=== PATIENT | male | born 1930 | race Caucasian/White ===

== ENCOUNTER → 2016-04-27 | Outpatient (CLI) | payer MEDICARE, OTHER ==
--- NOTE | 2016-04-27 11:40 | USB ---
Reason for exam: clinical finding. 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 These results were verbally communicated with the patient and result sheet given to the patient on 04/27/16. ASSESSMENT: Incomplete: need additional imaging evaluation, BI-RAD 0 RECOMMENDATION: Follow-up diagnostic mammogram of both breasts.
--- NOTE | 2016-04-27 11:42 | MM ---
Reason for exam: additional evaluation requested from abnormal screening. MG 3D Diag Mammo W/Cad SCOTT Bilateral CC and MLO view(s) were taken. Finding: There is an equal density (isodense) mass in the subareolar position of the left breast consistent with gynecomastia. These results were verbally communicated with the patient and result sheet given to the patient on 04/27/16. ASSESSMENT: Probably benign, BI-RAD 3 RECOMMENDATION: Ultrasound of the left breast in 6 months.
== END | disposition home or self-care (01) ==
LOC: RADUSWWP 09:25
PROVIDERS: ATTEND Family Medicine
DX: N63 Unspecified lump in breast (principal)
CPT/HCPCS: 76641; G0204; G0279

== ENCOUNTER 2016-08-26 10:51 | Inpatient (IN) | payer MEDICARE, OTHER ==
--- NOTE | 2016-08-26 12:02 | ED ---
General Adult HPI - General Chief complaint: Syncope Stated complaint: Near Syncope Time Seen by Provider: 08/26/16 11:00 Source: patient, RN notes reviewed Mode of arrival: EMS Limitations: no limitations - History of Present Illness Initial comments: This is a 86-year-old male who presents emergency Department with a past medical history significant for an NM many years ago. Patient also had a TIA in the past. Patient states he used to smoke but he has quit 4 years. Patient comes in today because while at home he was sitting and he had a sensation of lightheadedness and he began to feel as though he was given a syncopal episode. A nurse was with him at the time and the nurse stated that it looked like he was given a passout he was no longer responding to her verbal questions. She stated that he was like this for a few minutes and then slowly came back around. Patient came in via EMS he was alert and oriented 3 for that whole duration. Patient denies any headache patient denies numbness weakness. Patient denies chest pain or palpitations per patient denies any difficulty breathing or shortness of breath. Patient states his heart rate is usually around 60 currently as I speak to at 45. Patient denies any changes in medication - Related Data Home Medications Medication Instructions Recorded Confirmed Aspirin 81 mg PO HS 03/03/14 08/26/16 Nitroglycerin Sl Tabs [Nitrostat] 0.4 mg PO DIRECTED 03/03/14 08/26/16 Atenolol [Tenormin] 50 mg PO DAILY 08/26/16 08/26/16 Pravastatin Sodium [Pravachol] 10 mg PO DAILY 08/26/16 08/26/16 Allergies Allergy/AdvReac Type Severity Reaction Status Date / Time doxycycline Allergy Swelling Verified 08/26/16 11:22 Review of Systems ROS Statement: Those systems with pertinent positive or pertinent negative responses have been documented in the HPI. ROS Other: All systems not noted in ROS Statement are negative. Past Medical History Past Medical History: Coronary Artery Disease (CAD), Hyperlipidemia, Myocardial Infarction ([place]) History of Any Multi-Drug Resistant Organisms: None Reported Past Surgical History: Heart Catheterization Past Psychological History: No Psychological Hx Reported Smoking Status: Former smoker Past Alcohol Use History: Occasional Past Drug Use History: None Reported General Exam - General Exam Comments Initial Comments: GENERAL: Patient is well-developed and well-nourished. Patient is nontoxic and well- hydrated and is in no acute distress. ENT: Neck is soft and supple. No significant lymphadenopathy is noted. Oropharynx is clear. Moist mucous membranes. Neck has full range of motion without eliciting any pain. EYES: The sclera were anicteric and conjunctiva were pink and moist. Extraocular movements were intact and pupils were equal round and reactive to light. Eyelids were unremarkable. PULMONARY: Unlabored respirations. Good breath sounds bilaterally. No audible rales rhonchi or wheezing was noted. CARDIOVASCULAR: Patient's heart rate is approximate 45 bpm ABDOMEN: Soft and nontender with normal bowel sounds. No palpable organomegaly was noted. There is no palpable pulsatile mass. SKIN: Skin is clear with no lesions or rashes and otherwise unremarkable. NEUROLOGIC: Patient is alert and oriented x3. Cranial nerves II through XII are grossly intact. Motor and sensory are also intact. Normal speech, volume and content. Symmetrical smile. MUSCULOSKELETAL: Normal extremities with adequate strength and full range of motion. No lower extremity swelling or edema. No calf tenderness. LYMPHATICS: No significant lymphadenopathy is noted PSYCHIATRIC: Normal psychiatric evaluation. Normal interpersonal interactions appears functionally intact in deals appropriately with others. No signs of depression. No signs of anxiety. Limitations: no limitations Course Vital Signs 08/26/16 08/26/16 08/26/16 11:16 11:36 12:19 Temperature 96.9 F L 98.3 F Pulse Rate 44 L 47 L 45 L Pulse Rate [ 47 L Tube Heater ] Pulse Rate [ Sitting] Pulse Rate [ Standing] Pulse Rate [ Supine] Respiratory 18 16 18 Rate Blood Pressure 124/59 124/70 Blood Pressure [Sitting] Blood Pressure [Standing] Blood Pressure [Supine] O2 Sat by Pulse 97 97 Oximetry 08/26/16 08/26/16 13:00 14:44 Temperature 98 F Pulse Rate 48 L Pulse Rate [ Tube Heater ] Pulse Rate [ 45 L Sitting] Pulse Rate [ 50 L Standing] Pulse Rate [ 46 L Supine] Respiratory 18 18 Rate Blood Pressure 108/53 Blood Pressure 120/58 [Sitting] Blood Pressure 112/58 [Standing] Blood Pressure 119/58 [Supine] O2 Sat by Pulse 94 L Oximetry Medical Decision Making - Medical Decision Making EKG shows sinus bradycardia at 46 bpm OR interval 254 QRS is 86 QT interval 45 QTC is 441 per patient's EKG shows no ST segment elevation or depression or T- wave abdomen is noted. Patient's chest x-ray shows no acute abnormality. Patient's heart rate stayed at about 45 throughout the duration of his stay in emergency department. I spoke with Dr. Galdamez he wanted the patient admitted in consultation cardiology so I did that. I wrote admitting orders. - Lab Data Result diagrams: 08/26/16 11:14 08/26/16 11:14 Lab Results 08/26/16 08/26/16 08/26/16 Range/Units 11:14 11:14 11:14 WBC 4.9 (3.8-10.6) k/uL RBC 4.40 (4.30-5.90) m/uL Hgb 14.1 (13.0-17.5) gm/dL Hct 41.3 (39.0-53.0) % MCV 93.9 (80.0-100.0) fL MCH 32.1 (25.0-35.0) pg MCHC 34.2 (31.0-37.0) g/dL RDW 12.2 (11.5-15.5) % Plt Count 140 L (150-450) k/uL Neutrophils % 64 % Lymphocytes % 21 % Monocytes % 7 % Eosinophils % 2 % Basophils % 2 % Neutrophils # 3.1 (1.3-7.7) k/uL Lymphocytes # 1.0 (1.0-4.8) k/uL Monocytes # 0.3 (0-1.0) k/uL Eosinophils # 0.1 (0-0.7) k/uL Basophils # 0.1 (0-0.2) k/uL PT (9.0-12.0) sec INR (<1.1) APTT (22.0-30.0) sec Sodium 141 (137-145) mmol/L Potassium 4.9 (3.5-5.1) mmol/L Chloride 107 (98-107) mmol/L Carbon Dioxide 26 (22-30) mmol/L Anion Gap 8 mmol/L BUN 19 (9-20) mg/dL Creatinine 1.02 (0.66-1.25) mg/dL Est GFR (MDRD) Af Amer >60 (>60 ml/min/1.73 sqM) Est GFR (MDRD) Non-Af >60 (>60 ml/min/1.73 sqM) Glucose 102 H (74-99) mg/dL Calcium 9.1 (8.4-10.2) mg/dL Magnesium 2.0 (1.6-2.3) mg/dL Total Bilirubin 1.3 (0.2-1.3) mg/dL AST 29 (17-59) U/L ALT 29 (21-72) U/L Alkaline Phosphatase 54 (38-126) U/L Total Creatine Kinase 99 (55-170) U/L CK-MB (CK-2) 1.5 (0.0-2.4) ng/mL CK-MB (CK-2) Rel Index 1.5 Troponin I <0.012 (0.000-0.034) ng/mL NT-Pro-B Natriuret Pep pg/mL Total Protein 7.0 (6.3-8.2) g/dL Albumin 4.0 (3.5-5.0) g/dL 08/26/16 08/26/16 Range/Units 11:14 11:14 WBC (3.8-10.6) k/uL RBC (4.30-5.90) m/uL Hgb (13.0-17.5) gm/dL Hct (39.0-53.0) % MCV (80.0-100.0) fL MCH (25.0-35.0) pg MCHC (31.0-37.0) g/dL RDW (11.5-15.5) % Plt Count (150-450) k/uL Neutrophils % % Lymphocytes % % Monocytes % % Eosinophils % % Basophils % % Neutrophils # (1.3-7.7) k/uL Lymphocytes # (1.0-4.8) k/uL Monocytes # (0-1.0) k/uL Eosinophils # (0-0.7) k/uL Basophils # (0-0.2) k/uL PT 10.8 (9.0-12.0) sec INR 1.1 (<1.1) APTT 22.1 (22.0-30.0) sec Sodium (137-145) mmol/L Potassium (3.5-5.1) mmol/L Chloride (98-107) mmol/L Carbon Dioxide (22-30) mmol/L Anion Gap mmol/L BUN (9-20) mg/dL Creatinine (0.66-1.25) mg/dL Est GFR (MDRD) Af Amer (>60 ml/min/1.73 sqM) Est GFR (MDRD) Non-Af (>60 ml/min/1.73 sqM) Glucose (74-99) mg/dL Calcium (8.4-10.2) mg/dL Magnesium (1.6-2.3) mg/dL Total Bilirubin (0.2-1.3) mg/dL AST (17-59) U/L ALT (21-72) U/L Alkaline Phosphatase (38-126) U/L Total Creatine Kinase (55-170) U/L CK-MB (CK-2) (0.0-2.4) ng/mL CK-MB (CK-2) Rel Index Troponin I (0.000-0.034) ng/mL NT-Pro-B Natriuret Pep 396 pg/mL Total Protein (6.3-8.2) g/dL Albumin (3.5-5.0) g/dL Disposition Clinical Impression: Bradycardia, Near syncope Disposition: ADMITTED IP TO THIS [facility] Time of Disposition: 13:16
[2016-08-26 12:15] LABS: Basophils # (A) 0.1 k/uL (0-0.2); Basophils % (A) 2 %; CH 31.8; Eosinophils # (A) 0.1 k/uL (0-0.7); Eosinophils % (A) 2 %; HCT 41.3 % (39.0-53.0); HDW 2.25; HGB 14.1 gm/dL (13.0-17.5); Luc # (Auto) 0.21; Luc % (Auto) 4; Lymphocytes % (A) 21 %; MCH 32.1 pg (25.0-35.0); MCHC 34.2 g/dL (31.0-37.0); MCV 93.9 fL (80.0-100.0); Mean Platelet Volume 10.2; Monocytes # (A) 0.3 k/uL (0-1.0); Monocytes % (A) 7 %; Neutrophils # (A) 3.1 k/uL (1.3-7.7); Neutrophils % (A) 64 %; RDW 12.2 % (11.5-15.5); WBC 4.9 k/uL (3.8-10.6); WBC (Perox) 4.43
--- NOTE | 2016-08-26 12:19 | XR ---
EXAMINATION TYPE: XR chest 2V DATE OF EXAM: 08/26/2016 12:13 PM COMPARISON: 12/21/2012. HISTORY: Chest pain. TECHNIQUE: Frontal and lateral views of the chest are obtained. FINDINGS: Deep sulcus on the right is unchanged from the prior exam of 12/21/2012. There is no focal ai r space opacity, pleural effusion, or pneumothorax seen. The cardiac silhouette size is within fausto l limits. The osseous structures are intact. Degenerative changes are appreciated of the thoracic s pine. IMPRESSION: No acute cardiopulmonary process.
[2016-08-26 12:25] LABS: ALT 29 U/L (21-72); AST 29 U/L (17-59); Alkaline Phosphatase 54 U/L (38-126); Anion Gap 8 mmol/L; Blood Urea Nitrogen 19 mg/dL (9-20); Calcium 9.1 mg/dL (8.4-10.2); Carbon Dioxide 26 mmol/L (22-30); Chloride 107 mmol/L (98-107); Glucose 102 mg/dL (74-99); Non-African American GFR(MDRD) >60 (>60 ml/min/1.73 sqM); Potassium 4.9 mmol/L (3.5-5.1); Sodium 141 mmol/L (137-145); Total Bilirubin 1.3 mg/dL (0.2-1.3)
[2016-08-26 12:26] LABS: INR 1.1 (<1.1); Partial Thromboplastin Time 22.1 sec (22.0-30.0); Prothrombin Time 10.8 sec (9.0-12.0)
[2016-08-26 12:35] LABS: Creatine Kinase 99 U/L (55-170)
[2016-08-26 12:48] LABS: Creatine Kinase MB 1.5 ng/mL (0.0-2.4); Troponin I <0.012 ng/mL (0.000-0.034)
--- NOTE | 2016-08-26 16:12 | P.CRDCN ---
History of Present Illness Consult date: 08/26/16 Chief complaint: Dizziness and lightheadedness History of present illness: This is a pleasant 86-year-old gentleman who sees Dr. Waterman in the office as an outpatient with a past medical history significant for CAD with a known chronic total occlusion of the right coronary artery according to him, hypertension, and dyslipidemia, presented to the emergency room complaining of dizziness and lightheadedness. The patient was in his usual state of health until barely this morning when he was talking to his son-in-law at home and suddenly he felt dizzy and lightheaded and almost passing out. He did not have any syncope. No chest pain or discomfort. He was found to be bradycardic with a heart rate in the 40s. He was on atenolol for long time. The EKG showed sinus bradycardia without any significant changes. The atenolol was held. I will start the patient on Norvasc to trigger sinus tachycardia. We'll continue monitor the heart rate. Will obtain an echocardiogram was Doppler. Acute coronary syndrome to be ruled out. Past Medical History Past Medical History: Coronary Artery Disease (CAD), Hyperlipidemia, Myocardial Infarction ([place]) History of Any Multi-Drug Resistant Organisms: None Reported Past Surgical History: Heart Catheterization Past Psychological History: No Psychological Hx Reported Smoking Status: Former smoker Past Alcohol Use History: Occasional Past Drug Use History: None Reported Medications and Allergies Home Medications Medication Instructions Recorded Confirmed Type Aspirin 81 mg PO HS 03/03/14 08/26/16 History Nitroglycerin Sl Tabs [Nitrostat] 0.4 mg PO DIRECTED 03/03/14 08/26/16 History Atenolol [Tenormin] 50 mg PO DAILY 08/26/16 08/26/16 History Pravastatin Sodium [Pravachol] 10 mg PO DAILY 08/26/16 08/26/16 History Allergies Allergy/AdvReac Type Severity Reaction Status Date / Time doxycycline Allergy Swelling Verified 08/26/16 11:22 Physical Exam Vitals: Vital Signs Temp Pulse Resp BP Pulse Ox 08/26/16 15:47 97.1 F L 44 L 16 117/59 100 08/26/16 14:44 98 F 48 L 18 108/53 94 L - Constitutional General appearance: no acute distress - Respiratory Respiratory: bilateral: CTA - Cardiovascular Rhythm: regular Heart sounds: normal: S1, S2 Results 08/26/16 11:14 08/26/16 11:14 Assessment and Plan Plan: Assessment Symptomatic bradycardia CAD Hypertension Plan Continue holding the atenolol Start the patient on Norvasc Obtain an echocardiogram was Doppler Rule out acute coronary event
--- NOTE | 2016-08-26 16:40 | US ---
EXAMINATION TYPE: US carotid duplex BILAT DATE OF EXAM: 08/26/2016 1:43 PM COMPARISON: NONE CLINICAL HISTORY: Stenosis. possible TIA, patient stated he felt dizzy and thought he was going to pa ss out. EXAM MEASUREMENTS: RIGHT: Peak Systolic Velocity (PSV) cm/sec ----- Right CCA: 91.8 ----- Right ICA: 89.2 ----- Right ECA: 124.0 ICA/CCA ratio: 1.0 RIGHT: End Diastole cm/sec ----- Right CCA: 19.3 ----- Right ICA: 16.7 ----- Right ECA: 5.7 LEFT: Peak Systolic Velocity (PSV) cm/sec ----- Left CCA: 97.8 ----- Left ICA: 82.4 ----- Left ECA: 109.9 ICA/CCA ratio: 0.8 LEFT: End Diastole cm/sec ----- Left CCA: 18.8 ----- Left ICA: 31.8 ----- Left ECA: 7.6 VERTEBRALS (direction of flow): Right Vertebral: Antegrade Left Vertebral: Antegrade No significant stenosis seen, intimal thickening noted throughout. Plaque noted at bulbs bilaterally. Grayscale, color Doppler, spectral Doppler imaging performed of the carotid arteries IMPRESSION: No hemodynamic significant stenosis of the proximal internal carotid arteries bilaterally by Doppler criteria, an indirect measurement of carotid stenosis
[2016-08-26 16:47] VITALS: BMI 25.5
[2016-08-26] MEDS ORDERED: TAMSULOSIN 0.4 MG CAP.ER.24H PO SCH (22:15)
[2016-08-27] MEDS: amLODIPine 5 MG TAB PO SCH (07:41)
[2016-08-27 08:29] LABS: Cholesterol 153 mg/dL (<200); HDL Cholesterol 51 mg/dL (40-60); Triglycerides 92 mg/dL (<150)
[2016-08-27] MEDS ORDERED: Potassium Replacement Protocol 1 EACH MISC MISCELLANE PRN (10:42)
[2016-08-27] MEDS ORDERED: ONDANSETRON 4 MG/2 ML VIAL IVP PRN (10:42)
[2016-08-27] MEDS ORDERED: ACETAMINOPHEN TAB 325 MG TAB PO PRN (10:42)
[2016-08-27] MEDS ORDERED: Magnesium Replacement Protocol 1 EACH MISC MISCELLANE PRN (10:42)
--- NOTE | 2016-08-27 12:59 | P.HPIM ---
History of Present Illness H&P Date: 08/27/16 Chief Complaint: Dizziness and lightheadedness This is a 86-year-old gentleman with past medical history noted below significant for underlying coronary artery disease who presented to the hospital with worsening dizziness and lightheadedness. Patient said that his symptoms started a few days ago and is being getting progressively worse. He feels that he is in almost have a syncope but never fainted. He denies any chest pain or shortness of breath. He was concerned and decided to come to the emergency room for further evaluation of his dizziness. Patient denies any headache or vision change. In the emergency room, patient was found to be bradycardic with a heart rate in the low 40s. This was attributed to him eating on a beta lucita at home. Atenolol was discontinued. Heart rate improved significantly. Patient said that his dizziness is almost resolved. He was up with a physical therapist this morning and walked around the hallway with no difficulty. Review of Systems Review of system: 14 points review of systems were obtained and were negative except to what were mentioned in the HPI. General: The patient is awake and alert, in no distress, and does not appear acutely ill. Eye: extra-ocular movements are intact; there is normal conjunctiva bilaterally. . Neck: The neck is supple, there is no tenderness or JVD. Cardiovascular: Normal S1-S2, no S3-S4, no murmurs. Respiratory: Lungs clear to auscultation bilaterally with no wheezes rhonchi or rales. Gastrointestinal: Abdomen is soft, nontender, nondistended, with no organomegaly. . Musculoskeletal: Normal ROM, no tenderness, There is no pedal edema. Neurological: There are no obvious motor or sensory deficits. Speech is normal. Skin: Skin is warm and dry and no rashes or lesions are noted. Past Medical History Past Medical History: Coronary Artery Disease (CAD), Hyperlipidemia, Myocardial Infarction ([place]) Last Myocardial Infarction Date:: 1986 History of Any Multi-Drug Resistant Organisms: None Reported Past Surgical History: Heart Catheterization Additional Past Surgical History / Comment(s): States no Stent placed, States RCA is blocked, medical management Past Anesthesia/Blood Transfusion Reactions: No Reported Reaction Past Psychological History: No Psychological Hx Reported Smoking Status: Former smoker Past Alcohol Use History: Occasional Past Drug Use History: None Reported - Past Family History Mother Additional Family Medical History / Comment(s): states mother had Stroke iat 84 that was impairing , Diabetic Medications and Allergies Home Medications Medication Instructions Recorded Confirmed Type Aspirin 81 mg PO HS 03/03/14 08/26/16 History Nitroglycerin Sl Tabs [Nitrostat] 0.4 mg PO DIRECTED 03/03/14 08/26/16 History Atenolol [Tenormin] 50 mg PO DAILY 08/26/16 08/26/16 History Pravastatin Sodium [Pravachol] 10 mg PO DAILY 08/26/16 08/26/16 History Tamsulosin HCl [Flomax] 0.4 mg PO DAILY 08/26/16 08/26/16 History Allergies Allergy/AdvReac Type Severity Reaction Status Date / Time doxycycline Allergy Swelling Verified 08/26/16 11:22 Physical Exam Vitals: Vital Signs Temp Pulse Pulse Pulse Resp BP BP 08/27/16 11:32 58 L 17 117/58 08/27/16 07:42 52 L 16 08/27/16 07:37 96.8 F L 52 L 16 08/27/16 04:00 97 F L 64 16 08/27/16 00:00 96.9 F L 57 L 16 144/65 08/26/16 20:00 96.9 F L 51 L 16 135/61 08/26/16 17:11 49 L 18 08/26/16 15:47 97.1 F L 44 L 16 117/59 08/26/16 14:44 98 F 48 L 18 108/53 08/26/16 14:00 50 L 18 125/78 BP Pulse Ox 08/27/16 11:32 98 08/27/16 07:42 08/27/16 07:37 122/64 97 08/27/16 04:00 137/63 96 08/27/16 00:00 98 08/26/16 20:00 96 08/26/16 17:11 08/26/16 15:47 100 08/26/16 14:44 94 L 08/26/16 14:00 100 Intake and Output 08/26/16 08/27/16 08/27/16 22:59 06:59 14:59 Intake Total 240 180 Balance 240 180 Intake: Oral 240 180 Other: Voiding Method Toilet Toilet Toilet # Voids 1 # Bowel Movements 1 Results CBC & Chem 7: 08/26/16 11:14 08/26/16 11:14 Assessment and Plan Plan: 1. Symptomatic bradycardia 2. History of coronary artery disease 3. Essential hypertension: Blood pressure well-controlled 4. Mixed hyperlipidemia This is a 86-year-old gentleman who presented to the hospital with symptomatic bradycardia that improved significantly with discontinuing his atenolol. Echocardiogram done this morning awaiting report. Patient was seen and evaluated by cardiology, appreciate recommendations. I would check thyroid function test. Fasting lipid profile within acceptable range. Patient is concerned that his Pravachol may causing him muscle aches in both calves. I would discontinue Pravachol and advised to try Zetia instead. We'll continue supportive care otherwise. Continue telemetry monitoring. Anticipate discharge home within the next day or 2.
[2016-08-27 20:36] VITALS: RESP 18
[2016-08-27] MEDS: HEPARIN SODIUM,PORCINE 5,000 UNIT/ML 1 ML VIAL SQ SCH (20:38)
[2016-08-27] MEDS ORDERED: ASPIRIN 81 MG CHEW PO SCH (21:00)
[2016-08-27] MEDS ORDERED: TAMSULOSIN 0.4 MG CAP.ER.24H PO SCH (21:00)
--- NOTE | 2016-08-27 21:42 | P.PN ---
Subjective Principal diagnosis: Symptomatic bradycardia This is a pleasant 86-year-old gentleman who sees Dr. Waterman in the office as an outpatient with a past medical history significant for CAD with a known chronic total occlusion of the right coronary artery according to him, hypertension, and dyslipidemia, presented to the emergency room complaining of dizziness and lightheadedness. The patient was in his usual state of health when he was talking to his son-in- law at home and suddenly he felt dizzy and lightheaded and almost passing out. He did not have any syncope. No chest pain or discomfort. He was found to be bradycardic with a heart rate in the 40s. He was on atenolol which was stopped. The EKG showed sinus bradycardia without any significant changes. The heart rate has recovered after we stopped the atenolol. The heart rate has been in the 50s and 60s. He was started on Norvasc. We'll continue monitoring the heart rate for additional 24 hours for possible discharge home tomorrow. Objective - Vital Signs Vital signs: Vital Signs Temp 97 F L 08/27/16 20:35 Pulse 65 08/27/16 20:35 Resp 18 08/27/16 20:35 BP 126/59 08/27/16 20:35 Pulse Ox 95 08/27/16 20:35 Intake & Output 08/27/16 08/27/16 08/28/16 06:59 18:59 06:59 Intake Total 720 Balance 720 Intake: Oral 720 Other: Voiding Method Toilet Toilet # Voids 1 # Bowel Movements 1 - Constitutional General appearance: Present: no acute distress - Respiratory Respiratory: negative: CTA - Cardiovascular Rhythm: regular Heart sounds: normal: S1, S2 - Labs CBC & Chem 7: 08/26/16 11:14 08/26/16 11:14 Assessment and Plan Plan: Assessment Symptomatic bradycardia CAD Hypertension Plan Continue holding the atenolol Continue the Norvasc Obtain an echocardiogram was Doppler Follow-up with the patient
[2016-08-28 07:36] LABS: Basophils # (A) 0.1 k/uL (0-0.2); Basophils % (A) 1 %; CH 31.8; CHCM 32.9; Eosinophils # (A) 0.1 k/uL (0-0.7); Eosinophils % (A) 2 %; HCT 43.8 % (39.0-53.0); HDW 2.11; HGB 14.1 gm/dL (13.0-17.5); Luc # (Auto) 0.17; Luc % (Auto) 3; Lymphocytes # (A) 1.4 k/uL (1.0-4.8); Lymphocytes % (A) 23 %; MCH 31.3 pg (25.0-35.0); MCHC 32.3 g/dL (31.0-37.0); MCV 96.9 fL (80.0-100.0); Mean Platelet Volume 9.7; Monocytes # (A) 0.4 k/uL (0-1.0); Monocytes % (A) 7 %; Neutrophils # (A) 3.8 k/uL (1.3-7.7); Neutrophils % (A) 64 %; RBC 4.52 m/uL (4.30-5.90); RDW 12.5 % (11.5-15.5); WBC (Perox) 6.23
[2016-08-28 07:49] LABS: Blood Urea Nitrogen 24 mg/dL (9-20); Carbon Dioxide 25 mmol/L (22-30); Chloride 109 mmol/L (98-107); Non-African American GFR(MDRD) >60 (>60 ml/min/1.73 sqM)
[2016-08-28] MEDS: amLODIPine 5 MG TAB PO SCH (08:40)
[2016-08-28] MEDS: HEPARIN SODIUM,PORCINE 5,000 UNIT/ML 1 ML VIAL SQ SCH ×2 (08:40→08:42)
[2016-08-28] MEDS ORDERED: PRAVASTATIN SODIUM 20 MG TAB PO SCH (09:00)
[2016-08-28] MEDS ORDERED: EZETIMIBE 10 MG TAB PO SCH (09:00)
[2016-08-28 09:06] LABS: Anion Gap 9 mmol/L; Calcium 9.4 mg/dL (8.4-10.2); Glucose 103 mg/dL (74-99); Potassium 4.6 mmol/L (3.5-5.1); Sodium 143 mmol/L (137-145)
--- NOTE | 2016-08-28 11:57 | P.PN ---
Subjective Principal diagnosis: Symptomatic bradycardia This is a pleasant 86-year-old gentleman who sees Dr. Waterman in the office as an outpatient with a past medical history significant for CAD with a known chronic total occlusion of the right coronary artery according to him, hypertension, and dyslipidemia, presented to the emergency room complaining of dizziness and lightheadedness. The patient was in his usual state of health when he was talking to his son-in- law at home and suddenly he felt dizzy and lightheaded and almost passing out. He did not have any syncope. No chest pain or discomfort. He was found to be bradycardic with a heart rate in the 40s. He was on atenolol which was stopped. The EKG showed sinus bradycardia without any significant changes. The heart rate has recovered after we stopped the atenolol. The heart rate has been in the 60s. He was started on Norvasc. From the cardiovascular standpoint of view, the patient can be discharged home. He will be discharged on Norvasc and without atenolol. Objective - Vital Signs Vital signs: Vital Signs Temp 96.6 F L 08/28/16 08:00 Pulse 68 08/28/16 08:00 Resp 18 08/28/16 08:00 BP 113/57 08/28/16 08:00 Pulse Ox 97 08/28/16 08:00 Intake & Output 08/27/16 08/28/16 08/28/16 18:59 06:59 18:59 Intake Total 720 Balance 720 Weight 73.2 kg Intake: Oral 720 Other: Voiding Method Toilet Toilet # Voids 0 - Constitutional General appearance: Present: no acute distress - Respiratory Respiratory: bilateral: CTA - Cardiovascular Rhythm: regular Heart sounds: normal: S1, S2 - Labs CBC & Chem 7: 08/28/16 06:56 08/28/16 06:56 Labs: Abnormal Lab Results - Last 24 Hours (Table) 08/28/16 08/28/16 Range/Units 06:56 06:56 Plt Count 145 L (150-450) k/uL Chloride 109 H (98-107) mmol/L BUN 24 H (9-20) mg/dL Glucose 103 H (74-99) mg/dL Assessment and Plan Plan: Assessment Symptomatic bradycardia CAD Hypertension Plan Continue holding the atenolol Continue the Norvasc The patient can be discharged home
--- NOTE | 2016-08-28 15:28 | P.DS ---
Providers Date of admission: 08/26/16 13:16 Expected date of discharge: 08/28/16 Attending physician: Agnieszka Galdamez Primary care physician: Ibeth Angelo [facility] Course: 1. Symptomatic bradycardia 2. History of coronary artery disease 3. Essential hypertension: Blood pressure well-controlled. Medication switch to amlodipine 5 mg daily 4. Mixed hyperlipidemia: Total cholesterol 153. Patient is having muscle cramps with Pravachol which will be discontinued. Plan to recheck fasting lipid profile in 2-3 months and reevaluate if any medical treatment is needed This is a 86-year-old gentleman who presented to the hospital with symptomatic bradycardia that improved significantly with discontinuing his atenolol. Echocardiogram done but report is pending at the time of discharge. Patient was seen and evaluated by cardiology, he was cleared for discharge home. Patient will be discharged in a stable condition Plan - Discharge Summary Discharge Medication List Aspirin 81 mg PO HS 03/03/14 [History] Nitroglycerin Sl Tabs [Nitrostat] 0.4 mg PO DIRECTED 03/03/14 [History] Atenolol [Tenormin] 50 mg PO DAILY 08/26/16 [History] Pravastatin Sodium [Pravachol] 10 mg PO DAILY 08/26/16 [History] Tamsulosin HCl [Flomax] 0.4 mg PO DAILY 08/26/16 [History] Follow up Appointment(s)/Referral(s): Ibeth Angelo MD [Primary Care Provider] - 1-2 days (Please call for appointment.) Tito Bolanos MD [STAFF PHYSICIAN] - 09/10/16 1:15 pm Patient Instructions/Handouts: Bradycardia (DC)
[2016-08-28 15:59] VITALS: BP 119/59; PULSE 66; TEMP 97.1
--- NOTE | 2016-08-29 15:43 | ECHOF ---
Referral Reason:bradycardia MEASUREMENTS -------- HEIGHT: 172.7 cm WEIGHT: 76.2 kg BP: 137/63 IVSd: 1.3 cm (0.6 - 1.1) LVIDd: 3.8 cm (3.9 - 5.3) LVPWd: 1.1 cm (0.6 - 1.1) IVSs: 1.7 cm LVIDs: 1.8 cm LVPWs: 1.5 cm LAESV Index (A-L): 13.25 ml/m Ao Diam: 3.2 cm (2.0 - 3.7) AV Cusp: 1.3 cm (1.5 - 2.6) LA Diam: 3.6 cm (2.7 - 3.8) MV EXCURSION: 20.282 mm (> 18.000) MV EF SLOPE: 65 mm/s (70 - 150) EPSS: 1.4 cm MV E Rudolph: 0.50 m/s MV DecT: 314 ms MV A Rudolph: 0.59 m/s MV E/A Ratio: 0.85 RAP: 5.00 mmHg RVSP: 39.31 mmHg FINDINGS -------- Sinus rhythm. This was a technically adequate study. There is borderline concentric left ventricular hypertrophy. Overall left ventricular systolic function is low-normal with, an EF between 50 - 55 %. The right ventricle is normal in size and function. Normal LA size by volume 22+/-6 ml/m2. The right atrium is normal in size. Aortic valve is trileaflet and is mildly thickened. There is no evidence of aortic regurgitation. There is no evidence of aortic stenosis. Mild mitral annular calcification present. There is trace mitral regurgitation. Mild tricuspid regurgitation present. There is mild pulmonary hypertension. The right ventricular systolic pressure, as measured by Doppler, is 39.31mmHg. The pulmonic valve was not well visualized. The aortic root size is normal. There is no pericardial effusion. CONCLUSIONS -------- 1. Sinus rhythm. 2. The pulmonic valve was not well visualized. 3. The aortic root size is normal. 4. There is no pericardial effusion. 5. There is borderline concentric left ventricular hypertrophy. 6. Overall left ventricular systolic function is low-normal with, an EF between 50 - 55 %. 7. Aortic valve is trileaflet and is mildly thickened. 8. Mild mitral annular calcification present. 9. There is trace mitral regurgitation. 10. Mild tricuspid regurgitation present. 11. There is mild pulmonary hypertension. 12. The right ventricular systolic pressure, as measured by Doppler, is 39.31mmHg. MAINTENANCE MECHANIC HELPER: Zo Child RDCS
== END 2016-08-28 17:13 | disposition home or self-care (01) | DRG 310 ==
LOC: EC 10:51 → 6SEL 13:16
PROVIDERS: ADMIT Internal Medicine; ATTEND Internal Medicine
DX: R00.1 Bradycardia, unspecified (principal); I25.82 Chronic total occlusion of coronary artery; I25.10 Atherosclerotic heart disease of native coronary artery without angina pectoris; E78.2 Mixed hyperlipidemia; I10 Essential (primary) hypertension; R25.2 Cramp and spasm; T44.7X5A Adverse effect of beta-adrenoreceptor antagonists, initial encounter; T46.6X5A Adverse effect of antihyperlipidemic and antiarteriosclerotic drugs, initial encounter; R29.700 NIHSS score 0; R42 Dizziness and giddiness; R55 Syncope and collapse; Z79.82 Long term (current) use of aspirin; Z79.899 Other long term (current) drug therapy; Z87.891 Personal history of nicotine dependence; I25.2 Old myocardial infarction; Z82.3 Family history of stroke; Z83.3 Family history of diabetes mellitus; Z86.73 Personal history of transient ischemic attack (TIA), and cerebral infarction without residual deficits; Z88.1 Allergy status to other antibiotic agents
CPT/HCPCS: 36415; 71020; 80048; 80053; 80061; 82550; 82553; 83735; 83880; 84443; 84484; 85025; 85610; 85730; 93005; 93306; 93880; 99285

== ENCOUNTER → 2016-10-25 | Outpatient (CLI) | payer MEDICARE, OTHER ==
--- NOTE | 2016-10-25 11:12 | USB ---
Reason for exam: follow-up at short interval from prior study. Physical Findings: Nurse did not find any significant physical abnormalities on exam. US Breast LT Left breast ultrasound includes all four quadrants, the retroareolar region and axilla. Finding demonstrates a 15 x 5 x 16mm hypoechoic tissue, smaller in size than prior scat at the nipple, consistent with gynecomastia. These results were verbally communicated with the patient and result sheet given to the patient on 10/25/16. ASSESSMENT: Benign, BI-RAD 2 RECOMMENDATION: Clinical management of the left breast. Manage patient on a clinical basis.
== END | disposition home or self-care (01) ==
LOC: RADUSWWP 10:05
PROVIDERS: ATTEND Family Medicine
DX: R92.8 Other abnormal and inconclusive findings on diagnostic imaging of breast (principal)

== ENCOUNTER 2018-02-23 18:43 | Emergency (ER) | payer MEDICARE, OTHER ==
--- NOTE | 2018-02-23 19:50 | ED ---
Eye Problem HPI - General Chief complaint: Eye Problems Stated complaint: vision problems Time Seen by Provider: 02/23/18 19:08 Source: patient Mode of arrival: ambulatory Limitations: no limitations - History of Present Illness Initial comments: This is an 79-year-old male to the ER for evaluation. Patient having issues today. Patient states he woke around 2 AM with left eye blurry vision, bilateral blurry vision when he would close his right eye healingin his left eye. That resolved and then became a a blue spot white spot a black spot, patient currently is having significant blurry vision central aspect of his back he does have no history of wearing glasses or trauma, did have cataract surgery -: hour(s) (16) Onset Description: gradual, awoke with symptoms Location: left eye Place: home If Injury: none Eye Symptoms: blurry vision Severity: mild, moderate Severity scale (1-10): 4 Consistency: constant Associated Symptoms: none Treatments Prior to Arrival: none - Related Data Home Medications Medication Instructions Recorded Confirmed Aspirin 81 mg PO HS 03/03/14 08/26/16 Nitroglycerin Sl Tabs [Nitrostat] 0.4 mg PO DIRECTED 03/03/14 08/26/16 Tamsulosin HCl [Flomax] 0.4 mg PO DAILY 08/26/16 08/26/16 Previous Rx's Medication Instructions Recorded amLODIPine [Norvasc] 5 mg PO DAILY #30 tab 08/28/16 Allergies Allergy/AdvReac Type Severity Reaction Status Date / Time doxycycline Allergy Swelling Verified 02/23/18 18:51 Review of Systems ROS Statement: Those systems with pertinent positive or pertinent negative responses have been documented in the HPI. ROS Other: All systems not noted in ROS Statement are negative. Past Medical History Past Medical History: Coronary Artery Disease (CAD), Hyperlipidemia, Myocardial Infarction (CT) Last Myocardial Infarction Date:: 1986 History of Any Multi-Drug Resistant Organisms: None Reported Past Surgical History: Heart Catheterization Additional Past Surgical History / Comment(s): States no Stent placed, States RCA is blocked, medical management Past Anesthesia/Blood Transfusion Reactions: No Reported Reaction Past Psychological History: No Psychological Hx Reported Smoking Status: Former smoker Past Alcohol Use History: Occasional Past Drug Use History: None Reported - Past Family History Mother Additional Family Medical History / Comment(s): states mother had Stroke iat 84 that was impairing , Diabetic General Exam - General Exam Comments Initial Comments: Patient admits to subjective blurry vision central left eye Limitations: no limitations General appearance: alert, in no apparent distress Head exam: Present: atraumatic, normocephalic, normal inspection Eye exam: Present: normal appearance, PERRL, EOMI. Absent: scleral icterus, conjunctival injection, periorbital swelling ENT exam: Present: normal exam, mucous membranes moist Neck exam: Present: normal inspection. Absent: tenderness, meningismus, lymphadenopathy Respiratory exam: Present: normal lung sounds bilaterally. Absent: respiratory distress, wheezes, rales, rhonchi, stridor Cardiovascular Exam: Present: regular rate, normal rhythm, normal heart sounds. Absent: systolic murmur, diastolic murmur, rubs, gallop, clicks GI/Abdominal exam: Present: soft, normal bowel sounds. Absent: distended, tenderness, guarding, rebound, rigid Extremities exam: Present: normal inspection, full ROM, normal capillary refill. Absent: tenderness, pedal edema, joint swelling, calf tenderness Back exam: Present: normal inspection Neurological exam: Present: alert, oriented X3, CN II-XII intact Psychiatric exam: Present: normal affect, normal mood Skin exam: Present: warm, dry, intact, normal color. Absent: rash Course Vital Signs 02/23/18 02/23/18 18:49 20:52 Temperature 98.1 F 97.7 F Pulse Rate 75 72 Respiratory 16 20 Rate Blood Pressure 156/82 127/76 O2 Sat by Pulse 98 97 Oximetry - Reevaluation(s) Reevaluation #1: Medical record is reviewed Social patient family at length regarding prognosis and care plan, they're agreeable questions are answered Spoke with ophthalmology on-call, will see patient in office Medical Decision Making - Medical Decision Making 87 male the ER for evaluation of likely vascular injury left I, spoke with ophthalmology will see patient in the office at 8 AM tomorrow morning patient has no episodes of blindness currently. Disposition Clinical Impression: Blurry vision, left eye Disposition: HOME SELF-CARE Condition: Good Instructions: Blurred Vision (ED) Is patient prescribed a controlled substance at d/c from ED?: No Referrals: Charles Sanders MD [STAFF PHYSICIAN] - 1-2 days
[2018-02-23 20:53] VITALS: BP 127/76; PULSE 72; RESP 20; TEMP 97.7
== END 2018-02-23 20:53 | disposition home or self-care (01) ==
LOC: EC 18:43
DX: H53.8 Other visual disturbances (principal); I25.10 Atherosclerotic heart disease of native coronary artery without angina pectoris; I25.2 Old myocardial infarction; E78.5 Hyperlipidemia, unspecified; Z87.891 Personal history of nicotine dependence; Z79.82 Long term (current) use of aspirin; Z79.899 Other long term (current) drug therapy; Z88.1 Allergy status to other antibiotic agents; Z95.818 Presence of other cardiac implants and grafts
CPT/HCPCS: 99283

== ENCOUNTER → 2018-05-26 | Outpatient (CLI) | payer MEDICARE, OTHER ==
[2018-05-26 10:47] LABS: HCT 43.2 % (39.0-53.0); HGB 14.3 gm/dL (13.0-17.5); MCH 31.8 pg (25.0-35.0); MCHC 33.1 g/dL (31.0-37.0); Mean Platelet Volume 9.2; Platelet Count 173 k/uL (150-450); RBC 4.49 m/uL (4.30-5.90); RDW 12.4 % (11.5-15.5); WBC 6.5 k/uL (3.8-10.6)
[2018-05-26 11:04] LABS: Potassium 5.2 mmol/L (3.5-5.1)
== END | disposition home or self-care (01) ==
LOC: LABPAT 09:40
PROVIDERS: ATTEND Internal Medicine Interventional Cardiology
DX: Z01.812 Encounter for preprocedural laboratory examination (principal)
CPT/HCPCS: 36415; 80051; 82565; 84520; 85027

== ENCOUNTER 2018-06-10 09:27 | Day surgery (SDC) | payer MEDICARE, OTHER ==
[2018-06-05 15:54] VITALS: BMI 22.9
[~2018-06-10 09:27] MED LIST: ALPRAZolam 0.25 MG TAB PO PRN; ALPRAZolam 0.5 MG TAB PO PRN; ASPIRIN 325 MG TAB PO ONE; ATORVASTATIN 80 MG TAB PO ONE; NITROGLYCERIN SL TABS 0.4 MG TAB SUBLINGUAL PRN; SODIUM CHLORIDE 0.9% 1,000 ML in EMPTY BAG 1 BAG IV ONE
[2018-06-10] MEDS ORDERED: SODIUM CHLORIDE 0.9% 1,000 ML IV ONE (10:17)
[2018-06-10] MEDS ORDERED: VERAPAMIL 2.5 MG/ML 2 ML AMP ONE (12:50)
[2018-06-10] MEDS ORDERED: MIDAZOLAM 2 MG/2 ML VIAL IV ONE (13:01)
[2018-06-10] MEDS ORDERED: LIDOCAINE 1% INJ 10MG/ML (20 ML MDV) SQ ONE (13:03)
[2018-06-10] MEDS: VERAPAMIL SYRINGE (5 MG/10 ML) INTRAARTER ONE ×2 (13:04→13:13)
[2018-06-10] MEDS ORDERED: IOPAMIDOL-370 150ML BTL INJ ONE (13:13)
[2018-06-10] MEDS ORDERED: RX INFO: IV CONTRAST WAS GIVEN 1 EACH MISC MISCELLANE PRN (13:19)
[2018-06-10] MEDS ORDERED: SODIUM CHLORIDE 0.9% 1,000 ML IV SCH (13:30)
[2018-06-10] MEDS ORDERED: ACETAMINOPHEN TAB 325 MG TAB PO ONE (15:00)
[2018-06-10] MEDS ORDERED: ACETAMINOPHEN TAB 325 MG TAB ONE (15:25)
--- NOTE | 2018-06-10 15:27 | CC ---
CARDIAC CATHETERIZATION REPORT DATE OF SERVICE: 06/10/2018 PERFORMING PHYSICIAN: Tito Bolanos MD, Eviscerator. PROCEDURE PERFORMED: 1. Selective right and left coronary angiogram. 2. Left heart catheterization. INDICATION: This is a pleasant 87-year-old gentleman who is in great physical shape and mental shape for his age with history of coronary artery disease and known chronic total occlusion of the right coronary artery as well as hypertension and dyslipidemia, was experiencing symptoms of chest discomfort concerning for angina. Because of that, a heart catheterization was advised. APPROACH: Right radial artery. COMPLICATION: None. LEVEL OF SEDATION: Moderate with sedation length of 15 minutes. PROCEDURE DESCRIPTION: After obtaining an informed consent, the patient was brought to the cardiac laborer hoisting. The right radial artery was cannulated using micropuncture technique, the micropuncture wire passed easily, then I placed a 6-Uzbek sheath in the right radial artery. After that I gave the patient 2 mg of verapamil IA and 6000 units of heparin IV. Selective right and left coronary angiogram performed using JR4 and JL3.5 catheters. Left heart catheterization was performed using the JR4 which flipped into the LV, then I did pullback across aortic valve. The procedure was completed without any complication. SELECTIVE CORONARY ANGIOGRAM: 1. The right coronary artery is a large caliber vessel and it is a dominant vessel. The RCA is chronically occluded in the proximal portion, which is not a new finding. The patient was found to have occluded RCA in 2004. The occlusion is a long segment, extends from the proximal to the distal portion. The RCA fills by bridging collaterals from the left coronary system. 2. The left main has mild disease only. It bifurcates into left circumflex and left anterior descending artery. 3. The left circumflex is a large caliber vessel and it is a nondominant vessel. The proximal left circumflex appeared to have mild disease and gives rise into a large OM branch which appeared to have a lesion in the range of 50%. The circumflex appeared after that to have mild disease only. 4. The LAD, the proximal LAD has intermediate lesion in the range of 50%. It gives rise into a large first diagonal branch which appeared to have an ostial lesion seems to be in the range of 70% to 80%. The lesion involving the LAD. The mid LAD and distal LAD appear to have mild to moderate diffuse disease. HEMODYNAMICS: The left ventricular end-diastolic pressure was 4 mmHg without any significant gradient across the aortic valve. CONCLUSION: 1. Chronic total occlusion of the right coronary artery which fills by bridging collaterals from the left coronary system. This is not a new finding to the patient. 2. Intermediate disease involving the left circumflex coronary system. 3. Intermediate disease involving the ostial LAD and severe disease involving the ostial diagonal branch of the LAD. POSTPROCEDURE MANAGEMENT: Giving the above anatomy, I did recommend maximized medical treatment. The patient was already started on isosorbide mononitrate. We will continue that. Continue following up with him as an outpatient. MMODL / IJN: [id number] /
[2018-06-10] MEDS ORDERED: NITROGLYCERIN SL TABS 0.4 MG TAB SUBLINGUAL ONE (15:30)
[2018-06-10] MEDS ORDERED: HYDROmorphone 1 MG/ML 1 ML SYRINGE IVP ONE (16:00)
[2018-06-10] MEDS ORDERED: HYDROmorphone 1 MG/ML 1 ML SYRINGE IVP STA (16:18)
[2018-06-10] MEDS ORDERED: ACETAMINOPHEN TAB 325 MG TAB PO PRN (18:07)
[2018-06-10] MEDS ORDERED: HYDROmorphone 1 MG/ML 1 ML SYRINGE IVP PRN (18:28)
[2018-06-10] MEDS ORDERED: HYDROmorphone 0.5 MG/0.5 ML SYRINGE IVP PRN (18:28)
[2018-06-10] MEDS ORDERED: HYDROmorphone 0.5 MG/0.5 ML SYRINGE IVP ONE (18:30)
--- NOTE | 2018-06-10 20:46 | LTR ---
June 10, 2018 To: Dr. Ibeth Angelo Re: Catrachito Messer ([id number]) Dear Dr. Angelo, MrJose A Messer underwent heart catheterization today. I reviewed the findings with the patient and I recommended maximized medical treatment. I want to thank you for allowing us to participate in his care. Please do not hesitate to call if you have any questions or concerns. Sincerely, MD LAVELLE Bal / MEGAN: [id number] /
[2018-06-11 07:48] VITALS: BP 146/80; PULSE 70; RESP 18; TEMP 98
--- NOTE | 2018-06-11 08:10 | P.DS ---
Providers Attending physician: Tito Bolanos Primary care physician: [facility] Course: This is a pleasant 87-year-old gentleman with history of coronary artery disease , hypertension, dyslipidemia, was experiencing symptoms of chest discomfort. He was admitted to the hospital yesterday and underwent a heart catheterization which revealed chronic total occlusion of the RCA which fills by bridging collateral. He was found to have an intermediate disease involving the left coronary system. Maximize medical treatment was advised and the patient is on oral nitrate. The procedure was performed from right radial approach. After the procedure he was experiencing severe right forearm pain and he was having some weakness in his right hand. Because of that I did keep the patient overnight for observation. On follow-up with him today, he stated that he is feeling already better. The pain is better motion of the right hand is better. The patient is going to be discharged home and I'll follow-up with the patient in a week in the office Plan - Discharge Summary Discharge Rx Participant: No New Discharge Prescriptions: Continue Aspirin 81 mg PO HS Nitroglycerin Sl Tabs [Nitrostat] 0.4 mg PO DIRECTED Tamsulosin HCl [Flomax] 0.4 mg PO DAILY Montelukast [Singulair] 10 mg PO DAILY Isosorbide Mononitrate [Isosorbide Mononitrate ER] 30 mg PO DAILY amLODIPine [Norvasc] 2.5 mg PO DAILY Discharge Medication List Aspirin 81 mg PO HS 03/03/14 [History] Nitroglycerin Sl Tabs [Nitrostat] 0.4 mg PO DIRECTED 03/03/14 [History] Tamsulosin HCl [Flomax] 0.4 mg PO DAILY 08/26/16 [History] Isosorbide Mononitrate [Isosorbide Mononitrate ER] 30 mg PO DAILY 06/05/18 [ History] Montelukast [Singulair] 10 mg PO DAILY 06/05/18 [History] amLODIPine [Norvasc] 2.5 mg PO DAILY 06/05/18 [History] Follow up Appointment(s)/Referral(s): Tito Bolanos MD [STAFF PHYSICIAN] - 06/17/18 4:30 pm Patient Instructions/Handouts: After Radial Heart Catheterization (GEN) Activity/Diet/Wound Care/Special Instructions: Please call office tomorrow if your wrist/hand is still bothering you. Dr. Bolanos aware of your symptoms.
== END 2018-06-11 10:25 | disposition home or self-care (01) ==
LOC: CATHCVL 09:27 → 1SOBS 18:10 → CATHCVL 06-11 10:25
PROVIDERS: ATTEND Internal Medicine Interventional Cardiology
DX: I25.110 Atherosclerotic heart disease of native coronary artery with unstable angina pectoris (principal); I25.82 Chronic total occlusion of coronary artery; I10 Essential (primary) hypertension; Z87.891 Personal history of nicotine dependence; E78.5 Hyperlipidemia, unspecified; Z88.0 Allergy status to penicillin; Z88.8 Allergy status to other drugs, medicaments and biological substances; R55 Syncope and collapse; Z79.82 Long term (current) use of aspirin; Z79.899 Other long term (current) drug therapy
CPT/HCPCS: 93458; C1894; J2250; J2001; J1170 ×3; J1644; Q9967